=== PATIENT | male | born 1980 | race Native Hawaiian/Other Pacific Islander ===

== ENCOUNTER 2018-05-14 23:35 | Emergency (ER) | payer BC ==
[2018-05-15] MEDS ORDERED: SODIUM CHLORIDE 0.9% 1,000 ML IV ONE (00:34)
[2018-05-15 01:00] LABS: HGB 14.5 gm/dL (13.0-17.5); MCH 29.5 pg (25.0-35.0); MCHC 34.5 g/dL (31.0-37.0); MCV 85.4 fL (80.0-100.0); Mean Platelet Volume 8.4; Platelet Count 148 k/uL (150-450); RBC 4.92 m/uL (4.30-5.90); RDW 13.9 % (11.5-15.5); WBC 7.6 k/uL (3.8-10.6)
[2018-05-15 01:20] LABS: Lymphocytes # (M) 5.55 k/uL (1.0-4.8); Neutrophils # (M) 2.05 k/uL (1.3-7.7); Neutrophils % (M) 27 %; Nucleated Red Blood Cells 0 /100 WBC (0-0); Total Cells Counted 100
[2018-05-15 01:22] LABS: Reactive Lymphocytes Present
[2018-05-15 01:33] LABS: ALT 287 U/L (21-72); AST 141 U/L (17-59); Alkaline Phosphatase 310 U/L (38-126); Anion Gap 12 mmol/L; Calcium 8.6 mg/dL (8.4-10.2); Carbon Dioxide 25 mmol/L (22-30); Chloride 103 mmol/L (98-107); Glucose 96 mg/dL (74-99); Potassium 4.1 mmol/L (3.5-5.1); Sodium 140 mmol/L (137-145); Total Bilirubin 0.6 mg/dL (0.2-1.3); Total Protein 7.1 g/dL (6.3-8.2)
[2018-05-15 01:34] LABS: Blood Urea Nitrogen 16 mg/dL (9-20)
[2018-05-15 01:36] LABS: Appearance,Urine Clear (Clear); Bilirubin,Urine Negative (Negative); Blood,Urine Negative (Negative); Color,Urine Yellow; Glucose,Urine (UA) Negative (Negative); Ketones,Urine Negative (Negative); Leukocyte Esterase,Urine Negative (Negative); Mucus,Urine Many /hpf; Nitrite,Urine Negative (Negative); Protein,Urine 1+ (Negative); Specific Gravity,Urine 1.027 (1.001-1.035); WBC,Urine 1 /hpf (0-5)
--- NOTE | 2018-05-15 02:11 | ED ---
General Adult HPI - General Source: patient Mode of arrival: ambulatory Limitations: no limitations <Nat Rashid - Last Filed: 05/15/18 03:35> <Arturo Hdz - Last Filed: 05/16/18 07:08> - General Chief complaint: Fever Stated complaint: Sick Time Seen by Provider: 05/15/18 00:10 - History of Present Illness Initial comments: 38-year-old male patient presents to the emergency department today for 10 day history of fatigue, intermittent fevers, and swollen lymph nodes. Patient states that the symptoms pulse seemed to improve and then returned the next day. Patient states that he feels tired despite sleeping. States he has been generally achy. States that he has had fevers as high as 101F. He denies any recent travel or sick contacts. He does report some intermittent left upper quadrant discomfort. States it feels like summons pinching him. He denies any nausea, vomiting, constipation, or diarrhea. States his appetite has been good. Denies any rash. Denies any cough, congestion, sore throat, nasal drainage, or ear pain. Patient denies any recent shortness breath, chest pain, back pain, numbness, tingling, dizziness, hematuria, dysuria, urinary urgency, urinary frequency, visual changes, or any other complaints. (Nat Rashid) - Related Data Home Medications Medication Instructions Recorded Confirmed No Known Home Medications [No 05/15/18 05/15/18 Known Home Medications] Allergies Allergy/AdvReac Type Severity Reaction Status Date / Time No Known Allergies Allergy Verified 12/03/14 21:22 Review of Systems ROS Other: All systems not noted in ROS Statement are negative. <Nat Rashid - Last Filed: 05/15/18 03:35> ROS Other: All systems not noted in ROS Statement are negative. <Arturo Hdz - Last Filed: 05/16/18 07:08> ROS Statement: Those systems with pertinent positive or pertinent negative responses have been documented in the HPI. Past Medical History Past Medical History: No Reported History History of Any Multi-Drug Resistant Organisms: MRSA Date of last positivie culture/infection: 2013 MDRO Source:: nose Past Surgical History: No Surgical Hx Reported Past Psychological History: No Psychological Hx Reported Smoking Status: Never smoker Past Alcohol Use History: Occasional Past Drug Use History: None Reported <Nat Rashid - Last Filed: 05/15/18 03:35> General Exam Limitations: no limitations General appearance: alert, in no apparent distress, other (Physical well- developed, well-nourished adult male patient in no acute distress. Vital signs upon presentation are temperature 98.7F, pulse 76, respirations 20, blood pressure 124/84, pulse ox 99% on room air.) Eye exam: Present: normal appearance, PERRL, EOMI. Absent: scleral icterus, conjunctival injection, periorbital swelling ENT exam: Present: normal exam, normal oropharynx, mucous membranes moist Neck exam: Present: normal inspection, lymphadenopathy (Right anterior cervical lymphadenopathy). Absent: tenderness, meningismus Respiratory exam: Present: normal lung sounds bilaterally. Absent: respiratory distress, wheezes, rales, rhonchi, stridor Cardiovascular Exam: Present: regular rate, normal rhythm, normal heart sounds. Absent: systolic murmur, diastolic murmur, rubs, gallop, clicks GI/Abdominal exam: Present: soft, normal bowel sounds. Absent: distended, tenderness, guarding, rebound, rigid Neurological exam: Present: alert, oriented X3, CN II-XII intact Psychiatric exam: Present: normal affect, normal mood Skin exam: Present: warm, dry, intact, normal color. Absent: rash <Nat Rashid - Last Filed: 05/15/18 03:35> Vital Signs 05/14/18 05/15/18 23:58 02:30 Temperature 98.7 F 97.4 F L Pulse Rate 76 80 Respiratory 20 16 Rate Blood Pressure 124/84 142/81 O2 Sat by Pulse 99 98 Oximetry Medical Decision Making - Lab Data Result diagrams: 05/15/18 00:48 05/15/18 00:48 <Nat Rashid - Last Filed: 05/15/18 03:35> - Lab Data Result diagrams: 05/15/18 00:48 05/15/18 00:48 <Arturo Hdz - Last Filed: 05/16/18 07:08> - Medical Decision Making 38-year-old male patient presented to the emergency department today with complaints of multiple symptoms including fatigue, swollen lymph nodes, fevers, and just general malaise. Physical examination was relatively unremarkable however did note some right anterior cervical lymphadenopathy. Labs were reviewed and did show an elevated AST at 141, ALT at 287, alkaline phosphatase at 310. Patient was heterophile positive, these findings are consistent with infectious mononucleosis. Patient was also reporting a pinching sensation to the left upper quadrant of his abdomen. My attending Dr. Goodwin was in at bedside and we did perform ultrasound FAST exam which showed no evidence of free fluid in the abdomen. We did discuss findings and results with the patient. He is instructed to avoid any contact sports or injury to the left upper quadrant as this could affect his spleen. He is educated regarding supportive care. Is instructed to follow-up with his primary care physician for recheck. Return parameters were discussed in detail. He verbalizes understanding and agrees with this plan. (Nat Rashid) I saw this patient in conjunction with the physician assistant county attorney. I performed independent history and physical exam. Agree with case management. (Arturo Hdz) - Lab Data Lab Results 05/15/18 05/15/18 05/15/18 Range/Units 00:48 00:48 00:48 WBC 7.6 (3.8-10.6) k/uL RBC 4.92 (4.30-5.90) m/uL Hgb 14.5 (13.0-17.5) gm/dL Hct 42.0 (39.0-53.0) % MCV 85.4 (80.0-100.0) fL MCH 29.5 (25.0-35.0) pg MCHC 34.5 (31.0-37.0) g/dL RDW 13.9 (11.5-15.5) % Plt Count 148 L (150-450) k/uL Neutrophils % (Manual) 27 % Lymphocytes % (Manual) 73 % Neutrophils # (Manual) 2.05 (1.3-7.7) k/uL Lymphocytes # (Manual) 5.55 H (1.0-4.8) k/uL Nucleated RBCs 0 (0-0) /100 WBC Manual Slide Review Performed Reactive Lymphocytes Present RBC Morphology Normal Sodium 140 (137-145) mmol/L Potassium 4.1 (3.5-5.1) mmol/L Chloride 103 (98-107) mmol/L Carbon Dioxide 25 (22-30) mmol/L Anion Gap 12 mmol/L BUN 16 (9-20) mg/dL Creatinine 0.80 (0.66-1.25) mg/dL Est GFR (CKD-EPI)AfAm >90 (>60 ml/min/1.73 sqM) Est GFR (CKD-EPI)NonAf >90 (>60 ml/min/1.73 sqM) Glucose 96 (74-99) mg/dL Plasma Lactic Acid [place] (0.7-2.0) mmol/L Calcium 8.6 (8.4-10.2) mg/dL Total Bilirubin 0.6 (0.2-1.3) mg/dL AST 141 H (17-59) U/L ALT 287 H (21-72) U/L Alkaline Phosphatase 310 H (38-126) U/L Total Protein 7.1 (6.3-8.2) g/dL Albumin 4.0 (3.5-5.0) g/dL Urine Color Urine Appearance (Clear) Urine pH (5.0-8.0) Ur Specific [place] (1.001-1.035) Urine Protein (Negative) Urine Glucose (UA) (Negative) Urine Ketones (Negative) Urine Blood (Negative) Urine Nitrite (Negative) Urine Bilirubin (Negative) Urine Urobilinogen (<2.0) mg/dL Ur Leukocyte Esterase (Negative) Urine WBC (0-5) /hpf Urine Mucus (None) /hpf Heterophile Antibody Positive (Negative) 05/15/18 05/15/18 Range/Units 00:57 01:20 WBC (3.8-10.6) k/uL RBC (4.30-5.90) m/uL Hgb (13.0-17.5) gm/dL Hct (39.0-53.0) % MCV (80.0-100.0) fL MCH (25.0-35.0) pg MCHC (31.0-37.0) g/dL RDW (11.5-15.5) % Plt Count (150-450) k/uL Neutrophils % (Manual) % Lymphocytes % (Manual) % Neutrophils # (Manual) (1.3-7.7) k/uL Lymphocytes # (Manual) (1.0-4.8) k/uL Nucleated RBCs (0-0) /100 WBC Manual Slide Review Reactive Lymphocytes RBC Morphology Sodium (137-145) mmol/L Potassium (3.5-5.1) mmol/L Chloride (98-107) mmol/L Carbon Dioxide (22-30) mmol/L Anion Gap mmol/L BUN (9-20) mg/dL Creatinine (0.66-1.25) mg/dL Est GFR (CKD-EPI)AfAm (>60 ml/min/1.73 sqM) Est GFR (CKD-EPI)NonAf (>60 ml/min/1.73 sqM) Glucose (74-99) mg/dL Plasma Lactic Acid [place] 0.9 (0.7-2.0) mmol/L Calcium (8.4-10.2) mg/dL Total Bilirubin (0.2-1.3) mg/dL AST (17-59) U/L ALT (21-72) U/L Alkaline Phosphatase (38-126) U/L Total Protein (6.3-8.2) g/dL Albumin (3.5-5.0) g/dL Urine Color Yellow Urine Appearance Clear (Clear) Urine pH 6.0 (5.0-8.0) Ur Specific [place] 1.027 (1.001-1.035) Urine Protein 1+ H (Negative) Urine Glucose (UA) Negative (Negative) Urine Ketones Negative (Negative) Urine Blood Negative (Negative) Urine Nitrite Negative (Negative) Urine Bilirubin Negative (Negative) Urine Urobilinogen 4.0 (<2.0) mg/dL Ur Leukocyte Esterase Negative (Negative) Urine WBC 1 (0-5) /hpf Urine Mucus Many H (None) /hpf Heterophile Antibody (Negative) Disposition Is patient prescribed a controlled substance at d/c from ED?: No Time of Disposition: 02:11 <Nat Rashid - Last Filed: 05/15/18 03:35> Is patient prescribed a controlled substance at d/c from ED?: No <Arturo Hdz - Last Filed: 05/16/18 07:08> Clinical Impression: Infectious mononucleosis Disposition: HOME SELF-CARE Condition: Good Instructions: Mononucleosis (ED) Additional Instructions: Increase fluids. Rest. Follow-up through primary care physician for recheck as soon as possible. Return here immediately for any new, worsening, or concerning symptoms. Referrals: Eugenio Mahan MD [Primary Care Provider] - 1-2 days
[2018-05-15 02:32] VITALS: BP 142/81; PULSE 80; RESP 16; TEMP 97.4
== END 2018-05-15 02:30 | disposition home or self-care (01) ==
LOC: EC 23:35
DX: B27.90 Infectious mononucleosis, unspecified without complication (principal); Z86.14 Personal history of Methicillin resistant Staphylococcus aureus infection
CPT/HCPCS: 36415; 80053; 81001; 83605; 85025; 86308; 96360; 99284

== ENCOUNTER → 2018-06-16 | Outpatient (CLI) | payer BC ==
--- NOTE | 2018-06-16 10:00 | US ---
EXAMINATION TYPE: US abdomen complete DATE OF EXAM: 06/16/2018 COMPARISON: NONE CLINICAL HISTORY: 38-year-old male B27.10Cytomegaloviral mononucleosis without complications; patient stated was seen in last week and attending physician stated patient had enlarged spleen TECHNIQUE: Multiple sonographic images of the abdomen are obtained. FINDINGS: EXAM MEASUREMENTS: Liver Length: 15.2 cm Gallbladder Wall: 0.26 cm CBD: 0.3 cm Spleen: 11.6 cm Right Kidney: 11.7 x 5.1 x 4.7 cm Left Kidney: 11.9 x 5.8 x 5.0 cm Pancreas: Obscured by bowel gas Liver: Very slight increased echogenicity. No focal lesion seen. Gallbladder: wnl Evidence for sonographic Alba's sign: no CBD: wnl Spleen: wnl Right Kidney: No hydronephrosis. Left Kidney: No hydronephrosis. Upper IVC: wnl Abd Aorta: portions obscured by overlying bowel gas; size is wnl IMPRESSION: 1. Spleen measures 11.6 cm, within normal limits. 2. Very slight increased echogenicity of the liver. This could be on a technical basis or could refle ct mild fatty infiltration.
== END | disposition home or self-care (01) ==
LOC: RADUSWWP 07:31
PROVIDERS: ATTEND Internal Medicine Geriatric Medicine
DX: R93.2 Abnormal findings on diagnostic imaging of liver and biliary tract (principal); B27.10 Cytomegaloviral mononucleosis without complications
CPT/HCPCS: 76700